=== PATIENT | male | born 1980 | race Two or more races ===

== ENCOUNTER 2018-04-09 21:44 | Emergency (ER) | payer SELFPAY ==
[~2018-04-09] VITALS: Ht 160 cm; Wt 54.4 kg
[2018-04-09 22:02] VITALS: BP 143/86
[2018-04-10] MEDS ORDERED: MEPERIDINE HCL (50 MG/ML) 1 ML VIAL IM ONE (02:00)
[2018-04-10] MEDS ORDERED: TETANUS-DIPTH-ACEL PERTUSSIS 0.5ML SYRG IM ONE (02:00)
[2018-04-10] MEDS ORDERED: LIDOCAINE 1%HCL (LOCAL ANESTH) 10 ML MDV ONE (02:16)
== END 2018-04-10 02:51 | disposition home or self-care (01) ==
LOC: ER 21:44
DX: S41.112A Laceration without foreign body of left upper arm, initial encounter (principal); Y08.89XA Assault by other specified means, initial encounter; Y93.89 Activity, other specified; Y99.8 Other external cause status; Y92.89 Other specified places as the place of occurrence of the external cause
CPT/HCPCS: 12004; 90471; 90715; 96372; 99284; J2001; J2175